=== PATIENT | female | born 1985 | race African-American/Black ===

== ENCOUNTER 2016-07-07 19:01 | Emergency (ER) | payer MEDICAID, OTHER ==
[~2016-07-07] VITALS: Ht 165.1 cm; Wt 100.0 kg
[~2016-07-07 19:01] MED LIST: ACYC400T PO; FLAG500T PO
[2016-07-07 19:07] VITALS: BP 137/84; PULSE 109; RESP 16; TEMP 99.1; O2SAT 99
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
[2016-07-07] MEDS ORDERED: IBUPROFEN 600 MG TAB PO ONE (21:30)
== END 2016-07-07 22:05 ==
LOC: NEDAMB 19:01
DX: R06.02 Shortness of breath (principal); R51 Headache; F17.210 Nicotine dependence, cigarettes, uncomplicated; R00.0 Tachycardia, unspecified; Y35.811A Legal intervention involving manhandling, law enforcement official injured, initial encounter
CPT/HCPCS: 70450; 71010